=== PATIENT | female | born 1985 | race Caucasian/White ===

== ENCOUNTER 2017-11-23 14:04 | Emergency (ER) | payer SELFPAY ==
[~2017-11-23] VITALS: Ht 165.1 cm; Wt 70.0 kg
[2017-11-23 14:47] VITALS: BP 101/61
--- NOTE | 2017-11-23 17:03 | NUR ---
PT. AMB. TO BED#1
--- NOTE | 2017-11-23 17:08 | NUR ---
PATIENT BIB SELF C/O FEVER, COUGH, MID-CHEST PAIN, COLD SYMPTOMS X 1 WEEK.DENIES ANY MEDICAL HX; DENIES N/V/D; SKIN IS PINK/WARM/DRY; AAOX4 WITH EVEN AND STEADY GAIT; HR EVEN AND REGULAR; PATIENT STATES PAIN OF 6/10 CHEST AT THIS TIME;PATIENT POSITIONED FOR COMFORT; HOB ELEVATED; BEDRAILS UP X2; BED DOWN. ER MD MADE AWARE OF PT STATUS.
--- NOTE | 2017-11-23 17:36 | NUR ---
MOTHER IN BED WITH FAMILY AT BEDSIDE. TEMPERATURE 99.5 WITH CHRONIC NON-PRODUCTIVE COUGH. NOTIFTIED. COOLING MEAUSRE IMPLEMENTED. INSTRUCTED ON GOOD COUGH HYGIENE.
[2017-11-23 18:38] VITALS: BP 101/61
--- NOTE | 2017-11-23 18:39 | NUR ---
Patient discharged with v/s stable. Written and verbal after care instructions given and explained. Patient alert, oriented and verbalized understanding of instructions. Ambulatory with steady gait. All questions addressed prior to discharge. ID band removed. Patient advised to follow up with PMD. Rx of PROMATHAZINE given. Patient educated on indication of medication including possible reaction and side effects. Opportunity to ask questions provided and answered.
== END 2017-11-23 18:39 | disposition home or self-care (01) ==
LOC: MED 14:04
DX: J06.9 Acute upper respiratory infection, unspecified (principal)
CPT/HCPCS: 99283

== ENCOUNTER 2019-11-17 13:03 | Emergency (ER) | payer SELFPAY ==
[~2019-11-17] VITALS: Ht 167.6 cm; Wt 71.7 kg
[2019-11-17 13:18] VITALS: BP 118/58
--- NOTE | 2019-11-17 13:26 | NUR ---
PT AMBULATED TO BED 12.
--- NOTE | 2019-11-17 13:52 | NUR ---
C/O FEVER, BODYACHES, FATIGUE, COUGH, NASAL CONGESTION X 3 DAYS
[2019-11-17] MEDS ORDERED: guaiFENesin DM 200/20 MG-10 ML 10 ML UDC PO ONE (14:00)
[2019-11-17] MEDS ORDERED: OSELTAMIVIR PHOSPHATE 75 MG CAP PO ONE (14:00)
[2019-11-17] MEDS ORDERED: ACETAMINOPHEN 325 MG TAB PO ONE (14:00)
--- NOTE | 2019-11-17 14:02 | NUR ---
PROVIDED PATIENT WITH A CUP OF WATER AND ENCOURAGED ORAL HYDRATION
[2019-11-17 14:35] VITALS: BP 135/75
--- NOTE | 2019-11-17 14:37 | NUR ---
Patient discharged with v/s stable. Written and verbal after care instructions given and explained. Patient alert, oriented and verbalized understanding of instructions. Ambulatory with steady gait. All questions addressed prior to discharge. ID band removed. Patient advised to follow up with PMD. Rx of PROMETHAZINE, TAMIFLU, TESSALON given. Patient educated on indication of medication including possible reaction and side effects. Opportunity to ask questions provided and answered.
== END 2019-11-17 14:37 | disposition home or self-care (01) ==
LOC: MED 13:03
DX: J11.1 Influenza due to unidentified influenza virus with other respiratory manifestations (principal); B34.9 Viral infection, unspecified
CPT/HCPCS: 87804; 99283

== ENCOUNTER 2021-08-03 13:24 | Emergency (ER) | payer SELFPAY ==
[~2021-08-03] VITALS: Ht 165.1 cm; Wt 72.6 kg
[2021-08-03 13:58] VITALS: BP 101/78
--- NOTE | 2021-08-03 14:01 | NUR ---
PT TO AWAIT IN LOBBY
[2021-08-03] MEDS ORDERED: LORazepam 0.5 MG TAB PO ONE (14:55)
[2021-08-03] MEDS ORDERED: NITR100C7 PO (16:01)
[2021-08-03] MEDS ORDERED: HYDR-635 PO (16:01)
[2021-08-03 16:27] VITALS: BP 101/78
--- NOTE | 2021-08-03 16:27 | NUR ---
Patient discharged with v/s stable. Written and verbal after care instructions given and explained. Patient alert, oriented and verbalized understanding of instructions. Ambulatory with steady gait. All questions addressed prior to discharge. ID band removed. Patient advised to follow up with PMD. Rx of HYDROXYZINE AND MACROBID given. Patient educated on indication of medication including possible reaction and side effects. Opportunity to ask questions provided and answered.
== END 2021-08-03 16:27 | disposition home or self-care (01) ==
LOC: MED 13:24
DX: F41.9 Anxiety disorder, unspecified (principal); N39.0 Urinary tract infection, site not specified; G47.00 Insomnia, unspecified; Z79.899 Other long term (current) drug therapy
CPT/HCPCS: 81002; 81025; 93005; 99283

== ENCOUNTER 2021-09-12 19:47 | Emergency (ER) | payer MEDICAID ==
[~2021-09-12] VITALS: Ht 165.1 cm; Wt 74.8 kg
[~2021-09-12 19:47] MED LIST: HYDR-635 PO; NITR100C7 PO
[2021-09-12 19:57] VITALS: BP 145/96
--- NOTE | 2021-09-12 20:00 | NUR ---
PT SENT TO LOBBY
[2021-09-12] MEDS ORDERED: IBUP-2213 PO (20:50)
[2021-09-12] MEDS ORDERED: KETOROLAC 30 MG/ML VIAL IM ONE (20:50)
--- NOTE | 2021-09-12 20:59 | NUR ---
36/F BIB SELF WITH C/O ANXIETY. STATES ALL DAY SHE HAS BEEN FEELING ANXIOUS, RIGHT ARM NUMBNESS AND PALPITATIONS. PATIENT STATES SHE HAD INTERMITTENT BODY ACHES AND NON PRODUCTIVE COUGH YESTERDAY THAT SHE STATES HAS SINCE RESOLVED TODAY. PATIENT REPORTS BEING FULLY VACCINATED AGAINST COVID, DENIES ANY RECENT COVID EXPOSURE, DENIES CP, SOB, FEVER OR CHILLS.
[2021-09-12] MEDS ORDERED: ATA25 PO (21:04)
[2021-09-12 21:09] VITALS: BP 128/77
== END 2021-09-12 21:09 | disposition home or self-care (01) ==
LOC: MED 19:47
DX: B34.9 Viral infection, unspecified (principal); F41.9 Anxiety disorder, unspecified; R42 Dizziness and giddiness; Z79.899 Other long term (current) drug therapy
CPT/HCPCS: 96372; 99283; J1885